=== PATIENT | male | born 1985 | race Two or more races ===

== ENCOUNTER → 2022-01-24 03:45 | Emergency (ER) | payer SELFPAY ==
[~2022-01-24] VITALS: Ht 167.6 cm; Wt 65.8 kg
[~2022-01-24 03:45] MED LIST: MORPHINE SULFATE 4 MG/ML SYR/VIAL IV ONE
[2022-01-24 11:41] VITALS: BP 114/70
== END | disposition short-term general hospital (02) ==
LOC: ER 03:45 → EDBD 03:45
DX: S02.40EA Zygomatic fracture, right side, initial encounter for closed fracture (principal); S02.40CA Maxillary fracture, right side, initial encounter for closed fracture; Y04.8XXA Assault by other bodily force, initial encounter; Y93.89 Activity, other specified; Y92.89 Other specified places as the place of occurrence of the external cause; Y99.8 Other external cause status
CPT/HCPCS: 70450; 70486; 96374; 99285; J2270